=== PATIENT | male | born 1990 | race Caucasian/White ===

== ENCOUNTER 2018-09-09 16:19 | Emergency (ER) | payer OTHER, MEDICAID ==
[~2018-09-09] VITALS: Ht 177.8 cm; Wt 99.8 kg
[2018-09-09 16:30] VITALS: BP_SYST 112
--- NOTE | 2018-09-09 16:34 | NUR ---
Patient to ER bed to gown for evaluation. Side rails up. Report given to Wendi TUBBS.
--- NOTE | 2018-09-09 16:50 | NUR ---
Patient awake, alert, oriented x 4. Patient complaining of right knee swelling and pain 8/10 when walking. MD aware. No signs or symptoms of distress noted.
--- NOTE | 2018-09-09 16:55 | NUR ---
MATTHEW Guthrie at bedside examining patient.
[2018-09-09] MEDS: IBUPROFEN 800 MG TABLET PO ONE (16:58)
[2018-09-09 17:50] VITALS: BP_SYST 110
--- NOTE | 2018-09-09 17:50 | NUR ---
Patient given written and verbal discharge instructions and verbalizes understanding. ER MD discussed with patient the results and treatment provided. Patient in stable condition. ID arm band removed. Rx of Motrin given. Patient educated on pain management and to follow up with PMD. Pain Scale 0/10. Opportunity for questions provided and answered. Medication side effect fact sheet provided.
== END 2018-09-09 17:56 | disposition home or self-care (01) ==
LOC: SED 16:19
DX: M70.51 Other bursitis of knee, right knee (principal); I10 Essential (primary) hypertension
CPT/HCPCS: 36415; 73564; 84550-TC; 99283

== ENCOUNTER 2021-12-18 02:02 | Emergency (ER) | payer MEDICAID, OTHER ==
[~2021-12-18] VITALS: Ht 180.3 cm; Wt 104.3 kg
[2021-12-18 02:10] VITALS: BP_SYST 146
--- NOTE | 2021-12-18 02:15 | NUR ---
TRIAGED AND WILL PLACE PT IN [facility]
--- NOTE | 2021-12-18 02:18 | NUR ---
BROUGHT BACK TO [facility] FOR RINSING OF EYES
--- NOTE | 2021-12-18 02:21 | NUR ---
DR MONTERROSO EVALUATING PT AT [facility]
--- NOTE | 2021-12-18 02:40 | NUR ---
PT TOLD DR MONTERROSO THAT HE WAS WELDING ALL DAY, USED A FACE SHIELD FOR PROTECTION.
--- NOTE | 2021-12-18 02:50 | NUR ---
PT STILL ATTEMPTING TO WASH OUT BILATERAL EYES
--- NOTE | 2021-12-18 04:20 | NUR ---
DR MONTERROSO AT BEDSIDE PERFORMING PROCEDURE.
[2021-12-18] MEDS ORDERED: KETOROLAC TROMETHAMINE 60 MG/2 ML VIAL IM ONE (04:45)
[2021-12-18] MEDS ORDERED: ERYEYE EACH EYE (04:50)
[2021-12-18] MEDS ORDERED: IBUP-1971 PO (04:50)
--- NOTE | 2021-12-18 04:57 | NUR ---
Patient given written and verbal discharge instructions and verbalizes understanding. ER MD discussed with patient the results and treatment provided. Patient in stable condition. ID arm band removed. Rx of ERYTHROMYCIN EYE OINT, IBUPROFEN given. Patient educated on pain management and to follow up with PMD. Pain Scale 0/10. Opportunity for questions provided and answered. Medication side effect fact sheet provided.
== END 2021-12-18 04:56 | disposition home or self-care (01) ==
LOC: SED 02:02
DX: S05.02XA Injury of conjunctiva and corneal abrasion without foreign body, left eye, initial encounter (principal); H16.133 Photokeratitis, bilateral; Z79.899 Other long term (current) drug therapy; X58.XXXA Exposure to other specified factors, initial encounter; Y93.89 Activity, other specified; Y92.89 Other specified places as the place of occurrence of the external cause; Y99.8 Other external cause status
CPT/HCPCS: 99283; 96372; J1885